=== PATIENT | female | born 1960 | race Caucasian/White ===

== ENCOUNTER → 2019-07-12 | Outpatient (CLI) | payer MEDICARE ==
[~2019-07-12] MED LIST: CIPRO500 MG PO; IBUPROFEN 800800 M1 PO; MEDROLDOSEPACK PO; NOHOMEMEDICATIONS; ROBAXIN 750 MG750 M1 PO; TRAMADOL 50 MG50 MG PO
--- NOTE | 2019-07-17 19:26 | SLEEP ---
[address] [address] SLEEP STUDY REPORT Name: AYANNALUIS Room: [facility]#: [id number] Admission: 07/12/19 Attend Phys: Michael Harvey DO Discharge: Date of : 60 Report #: [id number] THIS REPORT FOR: //name// CC: Michael Harvey This study has been reviewed in its entirety by a board certified sleep specialist DATE OF SERVICE: 07/12/2019 SLEEP STUDY ATTENDING PHYSICIAN: Dr. Michael Harvey The patient is 58 years old who weighs 300 pounds with a BMI of 56.7. The patient underwent split night study performed at [facility]. During the night study, the patient spent 481 minutes in bed and slept for 352 minutes with a sleep efficiency of 73%. Sleep latency was 43 minutes with a REM latency of 85 minutes. Overall, sleep architecture showed normal stage 1 sleep, significantly reduced stage 2 sleep, which was only 17%, total sleep time. Increased N3 sleep, which is 43% of total sleep time and increased REM sleep, which was 35% of total sleep time. During the initial diagnostic portion of the study, the patient spent 92 minutes in bed and slept for 26 minutes. During that time, the patient had no obstructive mixed or central apneas. However, there were 47 hypopneas. The patient's apnea hypopnea index was 108 per hour. REM sleep was not observed. The patient did not have supine sleep either. EKG monitoring revealed an average heart rate of 91 beats per minute. No sustained arrhythmias observed. PLMS were seen at an index of 129 per hour and 36 per hour caused EEG arousals. However, while the patient slept on CPAP, the PLM index went down to only 13 per hour with an arousal index of 3 per hour. Nocturnal oximetry study revealed an average oxygen saturation of 85% with a lowest of 79% during the diagnostic portion. 28 minutes were spent in oxygen saturation of less than 89%. The patient met the criteria for CPAP initiation. It was started at 9 cm water and titrated up to 18 cm water. Two liters of oxygen was also added due to persistent hypoxia related to hypoventilation. The patient was then switched to BiPAP at a pressure of 20/16 and finally titrated up to 21/17[place] [address] SLEEP STUDY REPORT Name: LUIS URENA Room: [facility]#: [id number] Admission: 07/12/19 Attend Phys: Michael Harvey DO Discharge: Date of : 60 Report #: [id number] pressure, the patient slept for 265 minutes including 91 minutes of REM sleep. The patient had supine sleep as well. The patient's AHI was reduced to 1.4 per hour and oxygen saturation remained above 88%. IMPRESSION: 1. Severe sleep apnea-hypopnea syndrome at an AHI of 108 per hour. 2. Nocturnal hypoxia secondary to obstructive sleep apnea and hypoventilation. 3. Severe periodic limb movements - seen initially in the diagnostic portion, but significantly improved while the patient slept on CPAP from an index of 129 per hour to 13 per hour only. This does not need to be treated unless the patient has symptoms of restless legs during the day. RECOMMENDATIONS: 1. BiPAP at a pressure of 21/17 completely eliminated the patient's sleep apnea and should be used on a nightly basis.Patient also required 2 litres oxygen bleed in with BIPAP. 2. Follow up in 4-6 weeks to assess compliance with BiPAP and to document clinical improvement. 3. Weight loss is strongly advised. 4. Avoid FASHION MODEL depressants. 5. Cautioned regarding driving or operating heavy machinery until symptoms of sleep apnea resolve with the use of BiPAP. <ELECTRONICALLY SIGNED> By: Buck Hodgson MD 07/17/19 1926 1725 1916Aacacia Hodgson MD /nt
== END ==
LOC: M.SLEEPLAB 19:44
DX: G47.33 Obstructive sleep apnea (adult) (pediatric) (principal)

== ENCOUNTER → 2019-08-21 | Outpatient (CLI) | payer MEDICARE ==
[~2019-08-21] MED LIST changes: +ACCUNEB SO1.25 MG/1 INH; +BREO ELLIPTA 11 EACH INH; +CYMBALTA30 MG PO; +LISINOPRIL20 MG PO; +NEURONTIN 400400 M1 PO; +NORCO 5-325 TA1 EAC1 PO; +NORVASC5 MG PO; +OMEPRAZOLE20 M2 PO; +TOPROL XL100 MG PO; +VISTARIL 25 MG25 M1 PO; +WELLBUTRIN XL150 MG PO; +ZANAFLEX4 MG PO; +ZOCOR20 MG PO
== END ==
LOC: M.PC 04:54
DX: M51.16 Intervertebral disc disorders with radiculopathy, lumbar region (principal); M47.26 Other spondylosis with radiculopathy, lumbar region; E66.01 Morbid (severe) obesity due to excess calories; Z68.43 Body mass index [BMI] 50.0-59.9, adult; Z79.899 Other long term (current) drug therapy

== ENCOUNTER → 2019-09-01 | Outpatient (CLI) | payer MEDICARE ==
[~2019-09-01] MED LIST changes: +ANECREAM5 GM TOP; +ERGOCALCIF50000 UNIT PO; +GNP SENNA PLUS1 EACH PO; +IPRAT-ALBUT 0.5-3 ML INH; +MELATONIN5 M1 PO; +MUCINEX600 MG PO; +NAPROXEN375 MG PO; +OXYCODONE HCL 55 MG PO; +PREDNISONE 20 M20 MG PO; +SINGULAIR 10 MG10 M1 PO
== END ==
LOC: M.RAD 08-25 16:30 → M.MRI 08-25 17:30 → M.RAD 16:11
DX: M47.26 Other spondylosis with radiculopathy, lumbar region (principal); M47.817 Spondylosis without myelopathy or radiculopathy, lumbosacral region; M51.87 Other intervertebral disc disorders, lumbosacral region; M43.17 Spondylolisthesis, lumbosacral region; Z96.642 Presence of left artificial hip joint; M25.751 Osteophyte, right hip; M48.54XA Collapsed vertebra, not elsewhere classified, thoracic region, initial encounter for fracture; M48.061 Spinal stenosis, lumbar region without neurogenic claudication; M51.34 Other intervertebral disc degeneration, thoracic region

== ENCOUNTER 2019-09-11 10:43 | Inpatient (IN) | payer MEDICARE ==
[~2019-09-11] VITALS: Ht 157.5 cm; Wt 151.0 kg
[~2019-09-11 10:43] MED LIST changes: -ANECREAM5 GM TOP; -ERGOCALCIF50000 UNIT PO; -GNP SENNA PLUS1 EACH PO; -IPRAT-ALBUT 0.5-3 ML INH; -MELATONIN5 M1 PO; -MUCINEX600 MG PO; -NAPROXEN375 MG PO; -OXYCODONE HCL 55 MG PO; -PREDNISONE 20 M20 MG PO; -SINGULAIR 10 MG10 M1 PO
[2019-09-11 10:55] VITALS: BP 133/81
[2019-09-11 11:28] LABS: HEMATOCRIT 38.4 % (37.0-47.0); MCH 25.9 pg (26.0-34.0); MCHC 31.2 g/dL (28.0-37.0); MCV 83.1 fL (80.0-100.0); MPV 8.5 fl. (7.2-11.1); NUCLEATED RBCS 0 /100WBC; PLATELET COUNT* 248 thou/uL (150-400); RBC 4.62 mil/uL (4.20-5.00); RDW-CV 18.1 % (10.5-14.5); WBC 11.4 thou/uL (4.0-11.0)
[2019-09-11 11:37] LABS: APTT 27.8 Seconds (25.0-31.3); CALCIUM 9.1 mg/dL (8.5-10.1); CREATININE 1.7 mg/dL (0.6-1.3); POTASSIUM 4.5 mmol/L (3.5-5.1); PROTIME 10.3 Seconds (9.20-11.50)
[2019-09-11 11:47] LABS: ALBUMIN 3.1 g/dL (3.4-5.0); MAGNESIUM 1.8 mg/dL (1.8-2.4); TOTAL BILIRUBIN 0.3 mg/dL (<0.1-1.0); TOTAL PROTEIN 7.2 g/dL (6.4-8.2)
--- NOTE | 2019-09-11 12:03 | NUR ---
DR. HORNE IN ROOM WITH PATIENT.
[2019-09-11 12:08] LABS: ABSOLUTE LYMPHOCYTES 0.9 thou/uL (0.8-5.3); ABSOLUTE MONOCYTES 0.6 thou/uL (0.0-1.2); ABSOLUTE NEUTROPHILS 9.9 thou/uL (1.6-8.1); ANISOCYTOSIS 1+; PLATELET ESTIMATE ADEQUATE; POIKILOCYTOSIS 1+; POLYCHROMASIA 1+
[2019-09-11 13:30] VITALS: BP 104/56
--- NOTE | 2019-09-11 15:53 | NUR ---
PATIENT PRESENTED TO ROOM 226 FROM ER PER CART WITH A HX OF RESPIRATORY FAILURE. PATIENT IS ALERT AND ORIENTED X 4. SHE C/O SEVERE CHRONIC BACK PAIN. IV ANTIBIOTIC COMPLETED FROM ER. PATIENT PLACED ON TELE MONITOR. ORIENTED TO ROOM. PATIENT INSTRUCTED ON FALL PRECAUTIONS. BOX LUNCH PROVIDED. RESPIRATORY IN TO GIVE TREATMENT. O2 INCREASED TO 3 LITERS NC. PATIENT MEDICATED FOR C/O PAIN. PATIENT IS IN BED AT THIS TIME CALL LIGHT IS IN REACH.
--- NOTE | 2019-09-11 16:58 | EKG ---
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: : 1960 Requested By: Rene Riggs Order Number: [id number] MD: Seth Jones Measurements Intervals [place] Rate: 91 P: 65 ND: 154 QRS: -27 QRSD: 101 T: 45 QT: 379 QTc: 467 Interpretive Statements Pacemaker spikes or artifacts Sinus rhythm Borderline left axis deviation Low voltage, precordial leads Abnormal R-wave progression, late transition Borderline T abnormalities, anterior leads Artifact in lead(s) II,aVR,aVL,aVF No previous ECG available for comparison Electronically Signed On 09-11-2019 16:58:30 CDT by Seth Jones [email or web address] <ELECTRONICALLY SIGNED> By: Seth Jones MD, FACC 09/11/19 1658 1130 1130 Seth Jones MD, FACC /EPI
[2019-09-11 20:00] VITALS: BP 131/82
[2019-09-12 00:48] VITALS: BP 117/81
[2019-09-12 04:17] VITALS: BP 127/85
--- NOTE | 2019-09-12 04:47 | NUR ---
ASSUMED PT CARE AT APPROX 1930. PT IS AWAKE AND ORIENTED X4. RN ADVICE IN PLACE TRACING SR/ST. PT REMAINED SHORT OF AIR WITH ACTIVITY. spO2 NOTED AT 87-89% ON 4L, EXPIRATORY WHEEZES NOTED, PT INSTRUCTED TO DEEP BREATHE, INCREASED O2 SUPPORT TO 5L, RT CALLED FOR A PRN BREATHING TX. spO2 IS 92% ON 5L. PT ALSO C/O CHRONIC BACK PAIN PARTIALLY RELIEVED BY PAIN MEDS PER JAN. HEATING PAD PROVIDED. PT CLOSELY MONITORED.
[2019-09-12 07:00] VITALS: BP 116/63
--- NOTE | 2019-09-12 11:07 | NUR ---
INITAL ASSESSMENT COMPLETED CHARTED. VSS. PT REMAIN ON 4-5 LPM O2 WITH SATS AT 90%. TRACING SR/ST ON MONITOR. PT C/O CHRONIC BACK PAIN. PT DENIES ANY FURTHER NEEDS AT THIS TIME. HOURLY ROUNDING IN PLACE FOR PT SAFETY. CLWR
[2019-09-12 12:27] VITALS: BP 95/55
--- NOTE | 2019-09-12 13:41 | NUR ---
MET WITH PT TO DISCUSS HOME SITUATION/DC PLANNING. PT LIVES ALONE, HAS DTR THAT LIVES CLOSEBY. PT IS INDEPENDENT AND ACTIVE. USES NEBULIZER. PT HAS HAD HH IN PAST BUT NOT BEEN TO REHAB. PT DOESN'T HAVE A DPOA, INFO AND FORM GIVEN. PT DID NOT IDENTIFY ANY DC NEEDS AT THIS TIME, WILL FOLLOW
[2019-09-12 20:15] VITALS: BP 133/100
[2019-09-13 04:50] LABS: CALCIUM 9.3 mg/dL (8.5-10.1); CREATININE 1.9 mg/dL (0.6-1.3); MAGNESIUM 2.4 mg/dL (1.8-2.4)
[2019-09-13 04:57] LABS: HEMATOCRIT 40.1 % (37.0-47.0); HEMOGLOBIN 11.9 gm/dL (12.0-15.0); MCH 25.5 pg (26.0-34.0); MCHC 29.7 g/dL (28.0-37.0); MPV 8.9 fl. (7.2-11.1); RBC 4.66 mil/uL (4.20-5.00); RDW-CV 18.9 % (10.5-14.5)
--- NOTE | 2019-09-13 07:22 | NUR ---
PT ON 5L O2 BY LA. SAT 90-92%. MEDS GIVEN ORDERED. CHRONIC BACK PAIN MANAGED BY [employer]. HOURLY ROUNDING COMPLETED. WILL CONTINUE TO MONITOR.
[2019-09-13 08:00] VITALS: BP 121/73
[2019-09-13 15:44] VITALS: BP 95/60
[2019-09-13 16:36] VITALS: BP 121/72
[2019-09-13 18:19] LABS: PO2 69.5 mmHg (75.0-100.0)
[2019-09-13 18:22] LABS: PCO2 70.2 mmHg (35.0-45.0); pH 7.205 (7.340-7.450)
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
--- NOTE | 2019-09-13 18:42 | NUR ---
DR MORLEY NOTIFIED OF [facility] RESULTS FROM ABG. ORDERS GIVEN FOR BIPAP, SOLUMEDROL AND TRANSFER TO ICU.
[2019-09-13 20:54] VITALS: BP 124/66
[2019-09-13 22:00] VITALS: BP 121/68
[2019-09-13 23:00] VITALS: BP 127/77
[2019-09-14] VITALS (14 sets, daily range): BP systolic 106–148; BP diastolic 58–86
[2019-09-14 04:03] LABS: HEMATOCRIT 36.3 % (37.0-47.0); HEMOGLOBIN 10.8 gm/dL (12.0-15.0); MCH 25.5 pg (26.0-34.0); MCHC 29.8 g/dL (28.0-37.0); MCV 85.5 fL (80.0-100.0); MPV 8.6 fl. (7.2-11.1); RBC 4.24 mil/uL (4.20-5.00); RDW-CV 18.8 % (10.5-14.5); WBC 14.5 thou/uL (4.0-11.0)
[2019-09-14 04:37] LABS: CREATININE 2.2 mg/dL (0.6-1.3); MAGNESIUM 2.6 mg/dL (1.8-2.4); POTASSIUM 5.7 mmol/L (3.5-5.1)
[2019-09-14 05:34] LABS: BE -0.8 mmol/L (-2 to +3)
[2019-09-14 05:37] LABS: PCO2 70.1 mmHg (35.0-45.0); PO2 58.4 mmHg (75.0-100.0); pH 7.222 (7.340-7.450)
--- NOTE | 2019-09-14 06:39 | NUR ---
VITALS STABLE, AFEBRILE. POST ABG BIPAP SETTINGS ADJUSTEMENT THIS AM. COMPALINS OF BACK PAIN. NO BM, INCONTINENT TO URINE. RIGHT ANKLE SLIGHTLY MORE SWOLLEN FROM BEGINNING OF SHIFT, PT DOES NOT COMPLAIN OF PAIN THERE. OTHERWISE UNEVENFRUL NIGHT. CALL LIGHT WITHIN REACH.
[2019-09-14 07:50] LABS: BE 2.8 mmol/L (-2 to +3); PO2 93.5 mmHg (75.0-100.0)
[2019-09-14 07:53] LABS: PCO2 72.8 mmHg (35.0-45.0); pH 7.257 (7.340-7.450)
--- NOTE | 2019-09-14 14:46 | NUR ---
MET WITH PT REGARDING HOME TRILOGY; OFFERED CHOICE & SHARED LIST OF AGENCIES. [facility] SELECTED TO SEND REFERRAL. OUTREACH INITIATED AND DOCUMENTS REQUIRED FOR PRIOR AUTHORIZATION FAXED.
[2019-09-14 15:53] LABS: BE 4.6 mmol/L (-2 to +3); PO2 79.5 mmHg (75.0-100.0); pH 7.323 (7.340-7.450)
[2019-09-14 15:56] LABS: PCO2 63.4 mmHg (35.0-45.0)
--- NOTE | 2019-09-14 17:00 | 2DMMODE ---
[place] [address] 2 D/M-MODE ECHOCARDIOGRAM Name: AYANNALUIS A Room: [address] IN [facility]#: [id number] Admission: 09/11/19 Attend Phys: Sachin Bermeo, Discharge: Date of : 60 Date of Service: 09/14/19 1659 Report #: [id number] THIS REPORT FOR: //name// APPROVED REPORT Study performed: 09/14/2019 15:08:52 EXAM: Comprehensive 2D, Doppler, and color-flow Echocardiogram Patient Location: In-Patient Room #: [facility] Status: routine BSA: 2.35 HR: 89 bpm BP: 148/86 mmHg Rhythm: NSR Other Information Study Quality: Technically Difficult Technically limited study due to body habitus, poor endocardial definition. Indications Dyspnea Volumes Left Atrial Volume (Systole) LA ESV Index: 34.20 mL/m2 Aortic Valve AoV Peak Willian.: 1.51 m/s AO Peak Gr.: 9.11 mmHg LVOT Max P.17 mmHg AO Mean Gr.: 5.28 mmHg LVOT Mean P.11 mmHg LVOT Max V: 1.24 m/s AO V2 VTI: 27.30 cm LVOT Mean V: 0.81 m/s LVOT V1 VTI: 24.34 cm Mitral Valve E/A Ratio: 1.03 MV Decel. Time: 200.26 ms MV E Max Willian.: 0.76 m/s MV PHT: 58.08 ms MVA (PHT): 3.79 cm2 TDI E/Lateral E': 6.91 E/Medial E': 7.60 [place] [address] 2 D/M-MODE ECHOCARDIOGRAM Name: LUIS URENA Room: [address] IN [facility]#: [id number] Admission: 09/11/19 Attend Phys: Sachin Bermeo, Discharge: Date of : 60 Date of Service: 09/14/19 1659 Report #: [id number] Medial E' Willian.: 0.10 m/s Lateral E' Willian.: 0.11 m/s Left Ventricle The left ventricle is normal size. No obvious segmental wall motion abnormality. Left ventricular systolic function is grossly normal. LVEF is 65-70%. Transmitral Doppler flow pattern suggests impaired LV relaxation. Right Ventricle The right ventricle is grossly normal in size. The right ventricular systolic function is grossly normal. Atria Left atrium is mildly dilated. The right atrium size is normal. Aortic Valve The aortic valve is not well-visualized. No obvious aortic insufficiency. There is no aortic valvular stenosis. Mitral Valve The mitral valve is not well-visualized. Trace mitral regurgitation. No evidence of mitral valve stenosis. Tricuspid Valve The tricuspid valve is not well-visualized. Unable to assess PA pressure. Trace tricuspid regurgitation. Pulmonic Valve The pulmonic valve is not visualized. There is no pulmonic valvular regurgitation. Great Vessels The aortic root is grossly normal in size. IVC is normal in size and collapses >50% with inspiration. Pericardium There is no pericardial effusion. <Conclusion> The left ventricle is normal size. Left ventricular systolic function is grossly normal. LVEF is 65-70%. Transmitral Doppler flow pattern [place] [address] 2 D/M-MODE ECHOCARDIOGRAM Name: LUIS URENA Room: [address] IN [facility]#: [id number] Admission: 09/11/19 Attend Phys: Sachin Bermeo, Discharge: Date of : 60 Date of Service: 09/14/191658 Report #: [id number] No obvious segmental wall motion abnormality. Left atrium is mildly dilated. <ELECTRONICALLY SIGNED> By: Dilan Crespo MD, [facility] 09/14/191658 58 58 Dilan Crespo MD, FACC /INF
--- NOTE | 2019-09-14 18:12 | NUR ---
THIS SKULL GRINDER ASSUMED CARE OF PT AFTER RECEIVING SHIFT REPORT AT 0700. PT ADVANCED TOWARD GOALS TODAY BY MAINTAINING MORE STABLE O2 SAT WITH LOWER BIPAP SETTING ABG ARE PROGRESSING SINCE ON BIPAP. PT HAD X-RAY TO CONFIRM FX RIGHT ANKLE DO TO FALL ORTHO CONSULT TODAY WRAPPED AND IMMOBILIZED POSSIBLE SURGERY NEEDED AFTER PT IS HEMODYNAMICALLY STABLE. DAUGHTER JANET CALLED TO SEE HOW PT WAS DOING. PT IS CURRNENTLY SLEEPING IN BED
[2019-09-15] VITALS (15 sets, daily range): BP systolic 120–153; BP diastolic 66–91
[2019-09-15 03:10] LABS: HEMATOCRIT 35.1 % (37.0-47.0); MCH 25.9 pg (26.0-34.0); MCHC 31.3 g/dL (28.0-37.0); MPV 8.8 fl. (7.2-11.1); RBC 4.22 mil/uL (4.20-5.00); RDW-CV 18.4 % (10.5-14.5); WBC 10.8 thou/uL (4.0-11.0)
[2019-09-15 03:29] LABS: CALCIUM 8.7 mg/dL (8.5-10.1); CREATININE 1.9 mg/dL (0.6-1.3); MAGNESIUM 2.5 mg/dL (1.8-2.4); POTASSIUM 4.8 mmol/L (3.5-5.1)
--- NOTE | 2019-09-15 03:37 | NUR ---
RECEIVED REPORT AND ASSUMED CARE AT 2355. PT RESTING IN BED. VSS. ICU MONITORING IN PLACE.
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
[2019-09-15 08:58] LABS: BE 6.4 mmol/L (-2 to +3); pH 7.355 (7.340-7.450)
[2019-09-15 09:00] LABS: PCO2 61.7 mmHg (35.0-45.0)
--- NOTE | 2019-09-15 12:24 | NUR ---
MET WITH PATIENT IN ROOM; ADVISED TRILOGY WAITING FOR DR ORDERS; DISCUSSED DC TO SNF WHEN READY & CHOICE OFFERED. PT REQUESTS SNF IN [place] FIRST CHOICE AND TO LOOK AT THE [facility] 2ND CHOICE. PT REQUESTS I CONTACT HER TWO DAUGHTERS AND UPDATE ON DC PLAN. CALL TO JANET, WITH VOICE MAIL ANSWER; CALL TO [facility], AND ADVISED OF TRILOGY THROUGH [facility] AND PLAN FOR SNF. ALL QUESTIONS ANSWERED.
--- NOTE | 2019-09-15 13:08 | NUR ---
Per patient request, call to [facility]. Spoke with admissions; Referral paperwork faxed. They state plan to have female bed open early to mid of next week. [facility] [address] [place], [place]. fax: [phone] phone: [phone]
--- NOTE | 2019-09-15 13:14 | NUR ---
Nutrition: Pt assessed for high BMI. Admitted with COPD exac. Wt up some from admit - 315 to 324#. Some edema in ankles. Regular diet. BUN 54, cr 1.9, alb 3.1, BG 131. Unsure of po intake today. Pt was sound asleep at time of visit. Mild risk. Will follow labs, wt, po intake per protocol, 09/20/19.
--- NOTE | 2019-09-15 18:21 | NUR ---
PT ASSUMED CARE OF PT AFTER RECEIVING SHIFT REPORT AT 0700. PT PROGRESSED TOWARD GOALS TODAY HAS TRANSFER ORDER TO DOWNGRADE WAITING ON AN OPEN ROOM. PT NO LONGER IS USIN BIPAP BUT HIGHFLOW NC ON 6L ABG RESULTS HAVE IMPROVED SINCE YESTERDAY. ORTHO SURGERY TALKED WITH PT ABOUT POTENTIAL SURGERY ON RIGHT ANKLE NEXT WEEK. PT ALSO SPOKE WITH CASE MG[facility] ABOUT PLACEMENT WITH [facility] AND REHAB AFTER DISCHARGE MOM AND SISTER IN ROOM MOST OF SHIFT
--- NOTE | 2019-09-16 00:34 | NUR ---
VSS. O2 SAT REMAINS >92% ON 6L O2 PER HFNC, BIPAP AT HS. NORCO GIVEN X1 FOR C/O BACK AND RLE PAIN WITH RELIEF OF SYMPTOMS. PT TO TRANSFER TO [facility], REPORT GIVEN TO HEBER Huitron RN.
[2019-09-16 03:49] VITALS: BP 126/90
--- NOTE | 2019-09-16 07:04 | NUR ---
ASSESSMENTS CHARTED. PATIENT UP FROM ICU TO UNIT. REMAINS ON HFNC AT 7 L. PATIENT SLEPT FOR MAJORITY OF SHIFT, AWOKE AT 0600. PATIENT IN PAIN REQUESTING MEDICATION.
[2019-09-16 08:00] VITALS: BP 149/89
[2019-09-16 09:18] LABS: BE 4.1 mmol/L (-2 to +3); PO2 73.7 mmHg (75.0-100.0); pH 7.345 (7.340-7.450)
[2019-09-16 09:20] LABS: PCO2 58.6 mmHg (35.0-45.0)
[2019-09-16 11:05] VITALS: BP 145/83
[2019-09-16 15:31] VITALS: BP 138/77
[2019-09-16 20:00] VITALS: BP 127/77
--- NOTE | 2019-09-16 20:21 | NUR ---
ASSUMED PT CARE AROUND 0700, PT NOTED TO BE RESTING IN BED A/OX4. PT HAD C/O PAIN. PAIN MED GIVEN. PT ON 5L 02 BREATHING COMFORTABLE. PT COMPLIANT WITH ALL NURSING CARE THIS SHIFT. PT WAS ABLE TO SIT IN RECLINER FOR A FEW HOURS WITH ASSISTANCE, MAINTAINED SR ON THE MONITOR. VSS, FALL PRECAUTIONS IN PLACE, CALL LIGHT AND PERSONAL BELONNGINGS IN REACH. BED AT LOWEST POSITION. .
--- NOTE | 2019-09-16 20:30 | NUR ---
THIS RN HAS REVIEWED THE CHARTING AND ASSESSMENT OF EDY AU.
[2019-09-17 00:49] VITALS: BP 118/68
[2019-09-17 04:00] VITALS: BP 132/78
--- NOTE | 2019-09-17 05:46 | NUR ---
ASSUMED PATIENT CARE AT 1900. ASSESSMENT COMPLETED CHARTED. VSS. SR ON MONITOR. PATIENT GOAL MET. HOURLY ROUNDING IN PLACE FOR PATIENT SAFETY. CLWR.
--- NOTE | 2019-09-17 07:27 | NUR ---
I HAVE REVIEWED AND AGREE WITH VALERIANO STEWART RN NURSING ASSESSMENT.
[2019-09-17 08:00] VITALS: BP 126/73
[2019-09-17 12:00] VITALS: BP 132/75
[2019-09-17 16:00] VITALS: BP 139/75
--- NOTE | 2019-09-17 16:31 | NUR ---
assumed pt care report received from nurse. pt is aox4. sinus rythm on monitor car operator. on 4 l nc. o2 saturation is 93%. pt states she wore bipap last night for 4 hours. pt out of bed to chair with assistance and walker use. non weight bearing on right lower extremity. traore patent. pt complains of lower back pain. tylenol and hydrocodone given. see emar. traore was removed at [address] order. will monitor output. call light at reach. will continue to monitor pt
[2019-09-17 22:07] LABS: PROLACTIN 16.1 ng/mL (4.8-23.3)
[2019-09-18] VITALS: BP 131/87; BP 132/83
[2019-09-18 04:00] VITALS: BP 135/87; BP 148/89
--- NOTE | 2019-09-18 05:13 | NUR ---
ASSUMED PATIENT CARE AT 1900. ASSESSMENT COMPLETED CHARTED. VSS. SR ON MONITOR. HOURLY ROUNDING IN PLACE FOR PATIENT SAFETY. CLWR.
--- NOTE | 2019-09-18 07:37 | NUR ---
I HAVE REVIEWED AND AGREE WITH PATSY STEWART RN, NURSING ASSESSMENT.
[2019-09-18 08:00] VITALS: BP 146/93
--- NOTE | 2019-09-18 09:19 | NUR ---
CM spoke with Pt regarding disposition, per previous CM note, plan for skilled v rehab at [place], PT in room to work with Pt, Cm to f/u post therapy session to determine what LOC Pt will need at [place]. CM faxed facesheet to [facility], for HH needs post dc. Pt states that she will likely need a walker for home and oxygen, trilogy order pending, per [place] at [facility], awaiting a signed order and updated note, CM to f/u to determine where we are with getting this information to [facility]. Following.
[2019-09-18 11:40] VITALS: BP 124/73
--- NOTE | 2019-09-18 15:03 | NUR ---
ASSUMED PT CARE REPORT RECEIVED FROM NURSE. PT IS AOX4. 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 ON 4 L NC. O2 SAT 93%. PT UP TO CHAIR WITH ASSIST X1 AND WALKER. PT COMPLAINS OF HEADACHE EARLY IN THE AM. TYLENOL GIVEN. PT ALSO COMPLAINS OF PAIN IN HER LEGS LATER THIS SHIFT. HYDROCODONE GIVEN PT WORKED WITH PHYSICAL THERAPIST AND OCCUPATIONAL THERAPIST. PT HAS A MODERATE AMOUNT OF FORMED BROWN COLORED STOOL. CALL LIGHT AT REACH. WILL CONTINUE TO MONITOR
[2019-09-18 16:00] VITALS: BP 134/71
[2019-09-18 20:00] VITALS: BP 116/66
[2019-09-19] VITALS (7 sets, daily range): BP systolic 113–146; BP diastolic 73–91
[2019-09-19 05:58] LABS: ALBUMIN 3.1 g/dL (3.4-5.0); CALCIUM 8.9 mg/dL (8.5-10.1); CREATININE 1.7 mg/dL (0.6-1.3); POTASSIUM 5.5 mmol/L (3.5-5.1); TOTAL BILIRUBIN 0.4 mg/dL (<0.1-1.0); TOTAL PROTEIN 6.6 g/dL (6.4-8.2)
--- NOTE | 2019-09-19 10:39 | NUR ---
CM spoke with Lisa from [facility], they can accept Pt, but need to get bariatric today, plan dc to skilled tomorrow. Trilogy to be delivered to the hospital today between 3-5pm. Updated Dr and Pt.
[2019-09-19 19:56] LABS: HEMOGLOBIN 12.1 gm/dL (12.0-15.0); MCHC 30.9 g/dL (28.0-37.0); MPV 8.5 fl. (7.2-11.1); NUCLEATED RBCS 0 /100WBC; PLATELET COUNT* 228 thou/uL (150-400); RBC 4.64 mil/uL (4.20-5.00); RDW-CV 18.8 % (10.5-14.5); WBC 14.4 thou/uL (4.0-11.0)
[2019-09-19 20:24] LABS: ABSOLUTE LYMPHOCYTES 0.7 thou/uL (0.8-5.3); ABSOLUTE NEUTROPHILS 13.7 thou/uL (1.6-8.1)
[2019-09-19 20:28] LABS: ANISOCYTOSIS 1+; PLATELET ESTIMATE ADEQUATE
--- NOTE | 2019-09-20 04:41 | NUR ---
PT A&O X4, VSS, MAINTAINING O2 SATS ON 2.5L VIA NC ABD TRIOLOGY @ . PT IS CONCERNED WITH SURGERY THIS AM AND HAVING SOME ANXIETY. TREATED WITH PRN MEDS ALONG WITH C/O PAIN THAT WAS ALSO TREATED WITH PRN MEDS. PT ABLE TO SLEEP OFF AND ON D/T FREQUENT URINATION. CURRENTLY RESTING IN BED WITH CALL LIGHT WITHIN REACH.
[2019-09-20 05:19] LABS: HEMATOCRIT 40.4 % (37.0-47.0); HEMOGLOBIN 12.4 gm/dL (12.0-15.0); MCH 25.8 pg (26.0-34.0); MCHC 30.7 g/dL (28.0-37.0); MPV 8.7 fl. (7.2-11.1); RBC 4.8 mil/uL (4.20-5.00); RDW-CV 18.4 % (10.5-14.5); WBC 15.8 thou/uL (4.0-11.0)
[2019-09-20 05:26] VITALS: BP 134/91
[2019-09-20 05:41] LABS: ALBUMIN 3.2 g/dL (3.4-5.0); ALKALINE PHOSPHATASE 64 U/L (46-116); ANION GAP 3 mmol/L (7-16); BUN 36 mg/dL (7-18); CALCIUM 8.6 mg/dL (8.5-10.1); CHLORIDE 101 mmol/L (98-107); CHOLESTEROL 132 mg/dL (<200); CO2 37 mmol/L (21-32); CREATININE 1.6 mg/dL (0.6-1.3); GLUCOSE 91 mg/dL (70-99); SGOT 22 U/L (15-37); SGPT 22 U/L (30-65); SODIUM 141 mmol/L (136-145); TOTAL BILIRUBIN 0.4 mg/dL (<0.1-1.0); TOTAL PROTEIN 6.6 g/dL (6.4-8.2); TRIGLYCERIDE 138 mg/dL (<150); VLDL 28 mg/dL (<40)
[2019-09-20 05:44] LABS: SERUM ASSESSMENT Clear
[2019-09-20 07:13] LABS: HDL CHOLESTEROL 51 mg/dL (>40); LDL CHOLESTEROL 54 mg/dL (<100); TC:HDL 2.6 Ratio (Not establshd)
--- NOTE | 2019-09-20 07:20 | NUR ---
PATIENT OFF FLOOR IN SURGERY REPORT GIVEN
--- NOTE | 2019-09-20 10:36 | NUR ---
Nutrition: follow up note. Pt eating regular diet. Alb 3.2, BG 91. Wt 333#. Possible disch to SNF tomorrow. No other nutrition interventions at this time. Low risk.
--- NOTE | 2019-09-20 11:20 | NUR ---
Surgery today, anticipate dc tomorrow.
[2019-09-20 11:30] VITALS: BP 146/86
--- NOTE | 2019-09-20 11:30 | NUR ---
PATIENT BACK FROM PACU SURGERY ORIF OF R ANKLE TO VIA BED RLE ACEWRAP C/D/I ELEVATED ON PILLOWS PATIENT STATES SOME PAIN 02/05 WILL CONTINUE TO MONITOR
--- NOTE | 2019-09-20 15:09 | EKG ---
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[facility] 1960 Requested By: Lilly James Order Number: [id number] John MD: Shawn Donsi Measurements Intervals [place] Rate: 87 P: LA: QRS: -25 QRSD: 105 T: 49 QT: 383 QTc: 461 Interpretive Statements Sinus rhythm Borderline left axis deviation Abnormal R-wave progression, late transition Artifact in lead(s) I,II,III,aVR,aVL,aVF Compared to ECG 09/11/2019 11:30:10 T-wave abnormality no longer present Electronically Signed On 09-20-2019 15:08:47 CDT by Shawn Donis [email or web address] <ELECTRONICALLY SIGNED> By: Shawn Donis MD, FACC 09/20/19 1508 0506 0506 Shawn Donis MD, FACC /EPI
[2019-09-20 16:00] VITALS: BP 112/55
[2019-09-20 20:00] VITALS: BP 142/82
[2019-09-21] VITALS: BP 145/80
--- NOTE | 2019-09-21 05:35 | NUR ---
PT A&O X4, VSS, MAINTAINING SATS ON 2L NC AND TRIOLOGY AT HS. PT RECOVERING FROM SURGERY, C/O PAIN BEING TREATED WITH PRN MEDICATION WITH RELIEF NOTED. PT STATING SHE WAS FINALLY ABLE TO SLEEP. PT CURRENTLY ASLEEP IN BED WITH CALL LIGHT WITHIN REACH.
[2019-09-21 07:16] VITALS: BP 140/80
[2019-09-21] MEDS ORDERED: PREDNISONE 20 M20 MG PO (09:16)
[2019-09-21] MEDS ORDERED: SINGULAIR 10 MG10 M1 PO (09:16)
[2019-09-21] MEDS ORDERED: IPRAT-ALBUT 0.5-3 ML INH (09:16)
[2019-09-21] MEDS ORDERED: NAPROXEN375 MG PO (09:16)
[2019-09-21] MEDS ORDERED: MUCINEX600 MG PO (09:16)
[2019-09-21] MEDS ORDERED: ANECREAM5 GM TOP (09:16)
[2019-09-21] MEDS ORDERED: ERGOCALCIF50000 UNIT PO (09:16)
[2019-09-21] MEDS ORDERED: OXYCODONE HCL 55 MG PO (09:16)
[2019-09-21] MEDS ORDERED: GNP SENNA PLUS1 EACH PO (09:16)
[2019-09-21] MEDS ORDERED: MELATONIN5 M1 PO (09:16)
--- NOTE | 2019-09-21 09:39 | NUR ---
Pt discharging to [facility] today, ambulance to grain picker at 2pm. Faxed dc orders and bipap settings, reminded Pt that she will not be able to use her trilogy while being skilled. Pt to updated family on POC. Chart copied. Nurse report number is [id number].
[2019-09-21 09:50] VITALS: BP 140/80
--- NOTE | 2019-09-21 14:41 | NUR ---
ASSUMED PT CARE AT 0730. ASSESSMENT COMPLETED CHARTED. ABLE TO MAKE NEEDS KNOWN. UP WITH 1 ASSIST, STAND AND PIVOT. C/O PAIN IN BACK AND RIGHT FOOT. RESTING IN RECLINER SOME OF THE DAY. DISCHARGE APPROVED, DISCHARGE PAPERWORK IN PACKET, IV TAKEN OUT AND HEART MONITOR REMOVED. CALLING REPORT TO OGNR SAILAJA, NO COMMENTS, QUESTIONS, OR CONCERNS NOTED. LEFT FACILITY AT 1440 WITH AMBULANCE ON A BED, WITH 2 AMBULANCE HELPERS, ALL STUFF TAKEN WITH HER.
--- NOTE | 2019-09-29 13:33 | OP ---
[address] [address] OPERATIVE REPORT Name: LUIS URENA Room: [address]#: [id number] Admission: 09/11/19 Attend Phys: Sachin Bermeo MD Discharge: 09/21/19 Date of : 60 Report #: [id number] THIS REPORT FOR: //name// CC: Michael Bermeo DATE OF SERVICE: 09/20/2019 PREOPERATIVE DIAGNOSIS: Right bimalleolar ankle fracture with syndesmosis injury. POSTOPERATIVE DIAGNOSIS: Right bimalleolar ankle fracture with syndesmosis injury. PROCEDURES: 1. ORIF right distal fibula. 2. ORIF right ankle syndesmosis. 3. Intraoperative physician-guided fluoro, less than 1 hour. SURGEON: Lynne Abraham DO REAL ESTATE SALES AGENT: Nathaniel Teixeira DO ANESTHESIA: Spinal. ESTIMATED BLOOD LOSS: 10 mL. SPECIMENS: None. DRAINS: None. COMPLICATIONS: None. CONDITION: Stable. DISPOSITION: PACU to med-surg. ANTIBIOTICS: 3 g Ancef IV preoperatively. TOURNIQUET: Approximately 70 minutes at 300 mmHg. IMPLANTS: Arthrex distal fibular locking plate and syndesmosis TightRope x 2. INDICATION FOR PROCEDURE: The patient is a very pleasant 58-year-old female who approximately 1 week ago stood up while in her hospital room, went to get something, she subsequently twisted her ankle and fell. X-rays were taken, [facility] [address] [place] [address] OPERATIVE REPORT Name: LUIS URENA Nahomi Room: [address] IN [facility]#: [id number] Admission: 09/11/19 Attend Phys: Sachin Bermeo MD Discharge: 09/21/19 Date of : 60 Report #: [id number] which confirmed right bimalleolar ankle fracture with likely syndesmosis injury. Therefore, I did recommend ORIF of the right ankle. The benefits, risks, complications, and alternatives of this procedure were discussed with the patient in detail. These include but are not limited to bleeding, surgical site infection, neurovascular compromise, hardware failure, malunion, nonunion, continued pain, posttraumatic arthritis, need for further surgery, DVT, PE as well as inherent risks of anesthesia. The patient understands these risks and is agreeable to proceed. Consent was signed in preoperative holding area and on the chart at the time of surgery. Operative site was marked. The patient had been followed throughout her hospital stay and the skin was noted to be amenable to surgical fixation and her medical respiratory issues had vastly improved. Therefore, she was cleared for surgical intervention. DESCRIPTION OF PROCEDURE: She was brought to the operating room. She was given the benefit of a spinal anesthetic. She was then placed supine on the operating room table. A well-padded tourniquet was placed in the proximal portion of the right thigh. The right lower extremity was then sterilely prepped with chlorhexidine scrub and ChloraPrep. She was then draped freely in the usual fashion. A timeout was performed confirming correct patient, site, procedure. Surgical site markings were identified and all in the room agreed and procedure began with exsanguination of right lower extremity with an Esmarch and inflation of tourniquet to 300 mmHg. Next, a standard lateral incision was made directly overlying the distal fibula. This was carried through skin and subcutaneous tissues. Care was taken to protect the superficial peroneal nerve throughout the entirety of the case. Dissection was carried down to the level of the periosteum. Sharp dissection was carried out at the fibular periosteum. We identified the fracture site. Fracture hematoma was cleared. We then performed open reduction and held the reduction with 2 [id number] clamps. X-rays confirmed appropriate fracture reduction with caodaism of fibular length, alignment, and rotation. We then chose an appropriate-size plate and held this into place on the bone in the appropriate position with 2 BB-Taks. We did confirm plate positioning with fluoroscopy as well. We then drilled, measured, and filled the distal holes in the plate with appropriate-length 2.7 mm locking screws and then proximal to the fracture site, 3 of the proximal holes were drilled, measured, and filled with appropriate-length 3.5 mm cortical nonlocking screws giving 6 cortices of fixation proximal to the fracture site. We then performed an intraoperative stress view. There was noted to be widening at the syndesmosis and a congruent ankle mortise with external rotation stress view. Therefore, decision was made to place 2 TightRopes across the syndesmosis. These were drilled with the appropriate drill bit and 2 TightRopes were placed across the syndesmosis, one approximately 1 cm from the joint line and one approximately 3 cm from the joint line. These were tightened down appropriately and noted to restore congruency to the ankle mortise. All excess sutures were removed. We then took final x-rays, which confirmed appropriate fracture reduction, hardware placement, and a congruent ankle mortise. Now, we irrigated the wound with saline. Deep tissues were closed with 0 Vicryl suture, [place] [address] OPERATIVE REPORT Name: LUIS URENA Room: [address]#: [id number] Admission: 09/11/19 Attend Phys: Sachin Bermeo MD Discharge: 09/21/19 Date of : 60 Report #: [id number] subcutaneous tissue was closed with 2-0 Vicryl suture, and skin reapproximated with 3-0 nylon. Wounds were then dressed with Xeroform, 4 x 4s, ABD, soft roll, and a well-padded posterior new plaster splint was applied. Tourniquet was let down at approximately 70 minutes. The patient tolerated the procedure well without complications and transferred to PACU in stable condition. All needle and sponge counts were correct x 2 and I was present throughout all pertinent portions of the procedure. <ELECTRONICALLY SIGNED> By: Lynne Abraham DO 09/29/19 1333 0945 [id number] Abraham DO /nt
== END 2019-09-21 14:35 | DRG 853 ==
LOC: M.ERS 10:43 → M.2W 11:31 → M.TBA-ER 11:31 → M.2W 13:52 → M.ORTHSURG 09-12 20:50 → M.ICU 09-13 19:10 → M.2W 09-16 00:19
PROVIDERS: Family Medicine; Internal Medicine; Internal Medicine Pulmonary Disease; ADMIT Internal Medicine
PROC: 0QSJXZZ Reposition Right Fibula, External Approach (ICD-10-PCS; principal; 2019-09-14)
PROC: 5A09357 Assistance with Respiratory Ventilation, Less than 24 Consecutive Hours, Continuous Positive Airway Pressure (ICD-10-PCS; 2019-09-15)
PROC: 5A09357 Assistance with Respiratory Ventilation, Less than 24 Consecutive Hours, Continuous Positive Airway Pressure (ICD-10-PCS; 2019-09-16)
PROC: 5A09357 Assistance with Respiratory Ventilation, Less than 24 Consecutive Hours, Continuous Positive Airway Pressure (ICD-10-PCS; 2019-09-17)
PROC: 5A09357 Assistance with Respiratory Ventilation, Less than 24 Consecutive Hours, Continuous Positive Airway Pressure (ICD-10-PCS; 2019-09-18)
PROC: 5A09357 Assistance with Respiratory Ventilation, Less than 24 Consecutive Hours, Continuous Positive Airway Pressure (ICD-10-PCS; 2019-09-19)
PROC: 0QSJ04Z Reposition Right Fibula with Internal Fixation Device, Open Approach (ICD-10-PCS; 2019-09-20)
PROC: 0SSF04Z Reposition Right Ankle Joint with Internal Fixation Device, Open Approach (ICD-10-PCS; 2019-09-20)
PROC: 5A09357 Assistance with Respiratory Ventilation, Less than 24 Consecutive Hours, Continuous Positive Airway Pressure (ICD-10-PCS; 2019-09-20)
DX: A41.9 Sepsis, unspecified organism (principal); J15.6 Pneumonia due to other Gram-negative bacteria; J96.21 Acute and chronic respiratory failure with hypoxia; J96.22 Acute and chronic respiratory failure with hypercapnia; N17.9 Acute kidney failure, unspecified; J44.1 Chronic obstructive pulmonary disease with (acute) exacerbation; Z68.44 Body mass index [BMI] 60.0-69.9, adult; J44.0 Chronic obstructive pulmonary disease with (acute) lower respiratory infection; M84.471A Pathological fracture, right ankle, initial encounter for fracture; I10 Essential (primary) hypertension; G47.33 Obstructive sleep apnea (adult) (pediatric); S82.841A Displaced bimalleolar fracture of right lower leg, initial encounter for closed fracture; E66.01 Morbid (severe) obesity due to excess calories; G89.29 Other chronic pain; M54.9 Dorsalgia, unspecified; K21.9 Gastro-esophageal reflux disease without esophagitis; M19.90 Unspecified osteoarthritis, unspecified site; F41.1 Generalized anxiety disorder; F32.9 Major depressive disorder, single episode, unspecified; E87.5 Hyperkalemia; S90.511A Abrasion, right ankle, initial encounter; D64.9 Anemia, unspecified; E03.9 Hypothyroidism, unspecified; D72.0 Genetic anomalies of leukocytes; E55.9 Vitamin D deficiency, unspecified; T38.0X5A Adverse effect of glucocorticoids and synthetic analogues, initial encounter; Z23 Encounter for immunization; Z90.710 Acquired absence of both cervix and uterus; Z88.6 Allergy status to analgesic agent; Z90.49 Acquired absence of other specified parts of digestive tract; Z83.6 Family history of other diseases of the respiratory system; Z87.891 Personal history of nicotine dependence; Z79.891 Long term (current) use of opiate analgesic; W18.39XA Other fall on same level, initial encounter; Y93.89 Activity, other specified; Y92.89 Other specified places as the place of occurrence of the external cause; Y99.8 Other external cause status

== ENCOUNTER → 2019-09-11 | Outpatient (CLI) | payer MEDICARE | LOC: M.PC 01:39 | DX: M51.16 Intervertebral disc disorders with radiculopathy, lumbar region (principal); M47.26 Other spondylosis with radiculopathy, lumbar region; M43.16 Spondylolisthesis, lumbar region; E66.01 Morbid (severe) obesity due to excess calories; I10 Essential (primary) hypertension; Z87.891 Personal history of nicotine dependence; Z90.710 Acquired absence of both cervix and uterus; Z96.642 Presence of left artificial hip joint; Z68.43 Body mass index [BMI] 50.0-59.9, adult; Z88.5 Allergy status to narcotic agent ==

== ENCOUNTER 2019-10-25 11:20 | Inpatient (IN) | payer MEDICARE ==
[2019-10-25] VITALS (10 sets, daily range): BP systolic 102–158; BP diastolic 61–104
[~2019-10-25] VITALS: Ht 152.4 cm; Wt 143.8 kg
--- NOTE | ~2019-10-25 | EEG ---
[address] [address] EEG STUDY REPORT Name: LUIS URENA Nahomi Room: [address] IN [facility]#: [id number] Admission: 10/25/19 Attend Phys: Maria G Forde MD Discharge: Date of : 60 Report #: [id number] THIS REPORT FOR: //name// CC: Michael Forde DATE OF SERVICE: 11/15/2019 This patient is being evaluated for altered mental status. EEG was done by placing the electrode by standard 10-20 system of electrode placement. Both referential and sequential montages were used for recording. Background activity is about 6-7 Hz. It is intermixed with a lot of muscle artifact as well as movement artifact. That makes the interpretation of this EEG very difficult. No active epileptiform activity was noted. IMPRESSION: This patient's EEG does not demonstrate any active epileptiform activity. However, the EEG is slow and that can occur with dementia, encephalopathy, effect of psychotropic medication, etc. Clinical correlation is recommended. By: 0847 [id number] March MD /nt
[~2019-10-25 11:20] MED LIST changes: +ANECREAM5 GM TOP; +ERGOCALCIF50000 UNIT PO; +GNP SENNA PLUS1 EACH PO; +IPRAT-ALBUT 0.5-3 ML INH; +MELATONIN5 M1 PO; +MUCINEX600 MG PO; +NAPROXEN375 MG PO; +OXYCODONE HCL 55 MG PO; +PREDNISONE 20 M20 MG PO; +SINGULAIR 10 MG10 M1 PO
[2019-10-25 11:51] LABS: HEMATOCRIT 35.5 % (37.0-47.0); HEMOGLOBIN 10.9 gm/dL (12.0-15.0); MCH 26.6 pg (26.0-34.0); MCHC 30.7 g/dL (28.0-37.0); MCV 86.8 fL (80.0-100.0); MPV 8.9 fl. (7.2-11.1); NUCLEATED RBCS 2 /100WBC; PLATELET COUNT* 247 thou/uL (150-400); RBC 4.09 mil/uL (4.20-5.00); RDW-CV 19.1 % (10.5-14.5); WBC 15.5 thou/uL (4.0-11.0)
[2019-10-25 11:56] LABS: APTT 26.1 Seconds (25.0-31.3); INR 1.1; PROTIME 11.2 Seconds (9.20-11.50)
[2019-10-25 11:57] LABS: CALCIUM 8.4 mg/dL (8.5-10.1); POTASSIUM 5.3 mmol/L (3.5-5.1)
[2019-10-25 12:06] LABS: ALBUMIN 3.2 g/dL (3.4-5.0); MAGNESIUM 2.1 mg/dL (1.8-2.4); TOTAL BILIRUBIN 0.5 mg/dL (<0.1-1.0); TOTAL PROTEIN 7.3 g/dL (6.4-8.2)
[2019-10-25 12:37] LABS: ABSOLUTE BASOPHILS 0.2 thou/uL (0.0-0.2); ABSOLUTE LYMPHOCYTES 1.9 thou/uL (0.8-5.3); ABSOLUTE MONOCYTES 0.2 thou/uL (0.0-1.2); ABSOLUTE NEUTROPHILS 13.3 thou/uL (1.6-8.1); ATYPICAL LYMPHS 3 %; METAMYELOCYTES 1 %; PLATELET ESTIMATE ADEQUATE
[2019-10-25 12:38] LABS: BE -1.7 mmol/L (-2 to +3)
[2019-10-25 12:42] LABS: PO2 328.4 mmHg (75.0-100.0); pH 7.192 (7.340-7.450)
[2019-10-25 19:47] LABS: BE -2.8 mmol/L (-2 to +3)
[2019-10-25 19:50] LABS: PCO2 64.2 mmHg (35.0-45.0)
[2019-10-26] VITALS (20 sets, daily range): BP systolic 95–130; BP diastolic 45–81
[2019-10-26 04:26] LABS: HEMATOCRIT 30.2 % (37.0-47.0); HEMOGLOBIN 9.3 gm/dL (12.0-15.0); MCH 26.2 pg (26.0-34.0); MCV 84.7 fL (80.0-100.0); MPV 8.6 fl. (7.2-11.1); RBC 3.56 mil/uL (4.20-5.00); RDW-CV 18.8 % (10.5-14.5); WBC 12.3 thou/uL (4.0-11.0)
[2019-10-26 04:46] LABS: ALBUMIN 2.6 g/dL (3.4-5.0); CALCIUM 7.7 mg/dL (8.5-10.1); CREATININE 1.8 mg/dL (0.6-1.3); POTASSIUM 4.5 mmol/L (3.5-5.1); TOTAL BILIRUBIN 0.3 mg/dL (<0.1-1.0)
[2019-10-26 06:22] LABS: BE -0.3 mmol/L (-2 to +3); PO2 90.5 mmHg (75.0-100.0)
[2019-10-26 06:25] LABS: pH 7.262 (7.340-7.450)
[2019-10-26 06:52] LABS: INFLUENZA A ANTIGEN Negative (Negative); INFLUENZA B ANTIGEN Negative (Negative)
[2019-10-26 09:24] LABS: PCO2 62.1 mmHg (35.0-45.0)
--- NOTE | 2019-10-26 11:41 | EKG ---
[place] [address] ELECTROCARDIOGRAM REPORT Name: AYANNALUIS Nahomi Room: [address] ADM IN 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: : 1960 Requested By: Rene Riggs Order Number: [id number] MD: Seth Jones Measurements Intervals [place] Rate: 82 P: 0 AK: 65 QRS: -21 QRSD: 112 T: 60 QT: 532 QTc: 622 Interpretive Statements Sinus rhythm Short AK interval Borderline intraventricular conduction delay Nonspecific T abnrm, anterolateral leads Prolonged QT interval Baseline wander in lead(s) V1 Compared to ECG 09/20/2019 05:06:32 Short AK interval now present ST (T wave) deviation now present Prolonged QT interval now present Electronically Signed On 10-26-2019 11:40:45 BUSINESS CONSULT by Seth Jones [email or web address] <ELECTRONICALLY SIGNED> By: Seth Jones MD, FACC 10/26/19 1140 1133 1133 Seth Jones MD, FACC /EPI
[2019-10-26 15:47] LABS: BE -0.1 mmol/L (-2 to +3); PO2 76.9 mmHg (75.0-100.0)
[2019-10-26 15:49] LABS: PCO2 58.3 mmHg (35.0-45.0); pH 7.289 (7.340-7.450)
[2019-10-27] VITALS (95 sets, daily range): BP systolic 78–134; BP diastolic 35–78
[2019-10-27 04:19] LABS: BE 0.5 mmol/L (-2 to +3); PO2 94.2 mmHg (75.0-100.0)
[2019-10-27 04:22] LABS: PCO2 59.8 mmHg (35.0-45.0); pH 7.287 (7.340-7.450)
[2019-10-27 04:54] LABS: ABSOLUTE LYMPHOCYTES 0.6 thou/uL (0.8-5.3); ABSOLUTE MONOCYTES 0.3 thou/uL (0.0-1.2); BASOPHILS 0.4 %; HEMOGLOBIN 8.9 gm/dL (12.0-15.0); LYMPHOCYTES 5.3 %; MCH 25.8 pg (26.0-34.0); MCHC 30.5 g/dL (28.0-37.0); MCV 84.3 fL (80.0-100.0); MONOCYTES 2.4 %; MPV 8.9 fl. (7.2-11.1); NUCLEATED RBCS 1 /100WBC; PLATELET COUNT* 177 thou/uL (150-400); POLYS 91.9 %; RBC 3.44 mil/uL (4.20-5.00)
[2019-10-27 05:11] LABS: ALBUMIN 2.5 g/dL (3.4-5.0); CALCIUM 7.6 mg/dL (8.5-10.1); CREATININE 1.9 mg/dL (0.6-1.3); MAGNESIUM 2.3 mg/dL (1.8-2.4); POTASSIUM 4.1 mmol/L (3.5-5.1); TOTAL BILIRUBIN 0.3 mg/dL (<0.1-1.0); TOTAL PROTEIN 5.9 g/dL (6.4-8.2)
[2019-10-27 05:12] LABS: ALBUMIN 2.5 g/dL (3.4-5.0); DIRECT BILIRUBIN 0.1 mg/dL (<0.1-0.3); TOTAL BILIRUBIN 0.3 mg/dL (<0.1-1.0); TOTAL PROTEIN 5.7 g/dL (6.4-8.2)
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
[2019-10-28] VITALS (75 sets, daily range): BP systolic 88–125; BP diastolic 41–74
[2019-10-28 05:00] LABS: HEMATOCRIT 28.5 % (37.0-47.0); HEMOGLOBIN 8.9 gm/dL (12.0-15.0); MCH 26.4 pg (26.0-34.0); MCHC 31.3 g/dL (28.0-37.0); MCV 84.2 fL (80.0-100.0); MPV 9.2 fl. (7.2-11.1); RBC 3.39 mil/uL (4.20-5.00); RDW-CV 19.3 % (10.5-14.5); WBC 9.8 thou/uL (4.0-11.0)
[2019-10-28 05:14] LABS: CALCIUM 7.9 mg/dL (8.5-10.1); CREATININE 1.5 mg/dL (0.6-1.3); MAGNESIUM 2.7 mg/dL (1.8-2.4); POTASSIUM 4.8 mmol/L (3.5-5.1)
[2019-10-28 05:38] LABS: BE -3.1 mmol/L (-2 to +3)
[2019-10-28 05:40] LABS: PCO2 52.2 mmHg (35.0-45.0); pH 7.278 (7.340-7.450)
[2019-10-29] VITALS (37 sets, daily range): BP systolic 87–171; BP diastolic 36–82
[2019-10-29 04:06] LABS: HEMATOCRIT 30.2 % (37.0-47.0); HEMOGLOBIN 9.3 gm/dL (12.0-15.0); MCHC 30.7 g/dL (28.0-37.0); MCV 84.7 fL (80.0-100.0); MPV 8.9 fl. (7.2-11.1); RBC 3.56 mil/uL (4.20-5.00); RDW-CV 19.5 % (10.5-14.5); WBC 9.4 thou/uL (4.0-11.0)
[2019-10-29 04:27] LABS: ALBUMIN 2.7 g/dL (3.4-5.0); CALCIUM 7.7 mg/dL (8.5-10.1); CREATININE 1.4 mg/dL (0.6-1.3); POTASSIUM 5.6 mmol/L (3.5-5.1); TOTAL BILIRUBIN 0.2 mg/dL (<0.1-1.0); TOTAL PROTEIN 6.2 g/dL (6.4-8.2)
[2019-10-29 06:34] LABS: BE 4.4 mmol/L (-2 to +3); PO2 87.3 mmHg (75.0-100.0)
[2019-10-29 06:36] LABS: PCO2 79.8 mmHg (35.0-45.0); pH 7.245 (7.340-7.450)
[2019-10-29 11:24] LABS: CALCIUM 7.8 mg/dL (8.5-10.1); CREATININE 1.4 mg/dL (0.6-1.3); POTASSIUM 5.8 mmol/L (3.5-5.1)
[2019-10-29 16:15] LABS: CALCIUM 7.8 mg/dL (8.5-10.1); CREATININE 1.4 mg/dL (0.6-1.3); POTASSIUM 5.4 mmol/L (3.5-5.1)
[2019-10-30] VITALS (59 sets, daily range): BP systolic 109–161; BP diastolic 57–92
[2019-10-30 05:29] LABS: HEMATOCRIT 28.5 % (37.0-47.0); HEMOGLOBIN 8.8 gm/dL (12.0-15.0); MCH 25.9 pg (26.0-34.0); MCV 83.6 fL (80.0-100.0); MPV 8.8 fl. (7.2-11.1); RBC 3.41 mil/uL (4.20-5.00); RDW-CV 18.6 % (10.5-14.5); WBC 9.2 thou/uL (4.0-11.0)
[2019-10-30 05:40] LABS: CALCIUM 7.6 mg/dL (8.5-10.1); CREATININE 1.3 mg/dL (0.6-1.3); MAGNESIUM 2.9 mg/dL (1.8-2.4); POTASSIUM 5.2 mmol/L (3.5-5.1)
[2019-10-30 05:50] LABS: BE 7.7 mmol/L (-2 to +3); PO2 78.3 mmHg (75.0-100.0)
[2019-10-30 05:52] LABS: PCO2 77.1 mmHg (35.0-45.0); pH 7.292 (7.340-7.450)
[2019-10-30 10:52] LABS: BE 3.2 mmol/L (-2 to +3); PO2 84.3 mmHg (75.0-100.0); pH 7.304 (7.340-7.450)
[2019-10-30 10:53] LABS: PCO2 63.3 mmHg (35.0-45.0)
[2019-10-31] VITALS (25 sets, daily range): BP systolic 116–152; BP diastolic 54–81
[2019-10-31 05:38] LABS: HEMATOCRIT 27.4 % (37.0-47.0); HEMOGLOBIN 8.7 gm/dL (12.0-15.0); MCH 26.3 pg (26.0-34.0); MCHC 31.7 g/dL (28.0-37.0); MPV 8.6 fl. (7.2-11.1); NUCLEATED RBCS 1 /100WBC; PLATELET COUNT* 188 thou/uL (150-400); RDW-CV 18.4 % (10.5-14.5); WBC 10.1 thou/uL (4.0-11.0)
[2019-10-31 05:50] LABS: CALCIUM 8.3 mg/dL (8.5-10.1); CREATININE 1.1 mg/dL (0.6-1.3); POTASSIUM 4.5 mmol/L (3.5-5.1)
[2019-10-31 06:03] LABS: ABSOLUTE LYMPHOCYTES 0.8 thou/uL (0.8-5.3); ABSOLUTE MONOCYTES 0.3 thou/uL (0.0-1.2); ANISOCYTOSIS 1+; PLATELET ESTIMATE ADEQUATE; POIKILOCYTOSIS 1+; POLYCHROMASIA 1+
[2019-10-31 13:36] LABS: CALCIUM 7.7 mg/dL (8.5-10.1); CREATININE 1.1 mg/dL (0.6-1.3); POTASSIUM 4.4 mmol/L (3.5-5.1)
[2019-11-01] VITALS (27 sets, daily range): BP systolic 115–172; BP diastolic 52–93
[2019-11-01 05:07] LABS: ADENOVIRUS Negative (Negative); INFLUENZA A Negative (Negative); INFLUENZA B Negative (Negative); METAPNEUMOVIRUS Positive (Negative); PARAINFLUENZA 1 Negative (Negative); PARAINFLUENZA 2 Negative (Negative); PARAINFLUENZA 3 Negative (Negative); RHINOVIRUS Negative (Negative); RSV A Negative (Negative); RSV B Negative (Negative)
[2019-11-01 05:14] LABS: HEMATOCRIT 28.9 % (37.0-47.0); HEMOGLOBIN 9.2 gm/dL (12.0-15.0); MCH 26.6 pg (26.0-34.0); MCHC 31.8 g/dL (28.0-37.0); MCV 83.6 fL (80.0-100.0); MPV 8.7 fl. (7.2-11.1); RBC 3.46 mil/uL (4.20-5.00); RDW-CV 18.5 % (10.5-14.5); WBC 8.7 thou/uL (4.0-11.0)
[2019-11-01 05:57] LABS: ALBUMIN 2.6 g/dL (3.4-5.0); CALCIUM 8.5 mg/dL (8.5-10.1); MAGNESIUM 2.5 mg/dL (1.8-2.4); POTASSIUM 4.3 mmol/L (3.5-5.1); TOTAL BILIRUBIN 0.4 mg/dL (<0.1-1.0); TOTAL PROTEIN 5.6 g/dL (6.4-8.2)
[2019-11-01 08:25] LABS: BE 11.7 mmol/L (-2 to +3); PO2 68.2 mmHg (75.0-100.0); pH 7.387 (7.340-7.450)
[2019-11-01 08:29] LABS: PCO2 66.7 mmHg (35.0-45.0)
[2019-11-02] VITALS (30 sets, daily range): BP systolic 128–193; BP diastolic 60–94
[2019-11-02 04:47] LABS: BE 5.5 mmol/L (-2 to +3); PCO2 47.4 mmHg (35.0-45.0); PO2 94.4 mmHg (75.0-100.0); pH 7.427 (7.340-7.450)
[2019-11-02 07:48] LABS: ABSOLUTE LYMPHOCYTES 0.8 thou/uL (0.8-5.3); ABSOLUTE MONOCYTES 0.3 thou/uL (0.0-1.2); ABSOLUTE NEUTROPHILS 6.8 thou/uL (1.6-8.1); BASOPHILS 0.2 %; EOSINOPHILS 0.1 %; HEMATOCRIT 27.9 % (37.0-47.0); HEMOGLOBIN 8.9 gm/dL (12.0-15.0); LYMPHOCYTES 10.2 %; MCH 26.4 pg (26.0-34.0); MCV 82.6 fL (80.0-100.0); MPV 9.2 fl. (7.2-11.1); NUCLEATED RBCS 0 /100WBC; PLATELET COUNT* 229 thou/uL (150-400); POLYS 85.5 %; RBC 3.38 mil/uL (4.20-5.00); RDW-CV 18.7 % (10.5-14.5); WBC 7.9 thou/uL (4.0-11.0)
[2019-11-02 07:51] LABS: CALCIUM 8.2 mg/dL (8.5-10.1); POTASSIUM 4.8 mmol/L (3.5-5.1)
[2019-11-02 07:55] LABS: ALBUMIN 2.5 g/dL (3.4-5.0); MAGNESIUM 2.3 mg/dL (1.8-2.4); PHOSPHORUS* 4.2 mg/dL (2.5-4.9); TOTAL BILIRUBIN 0.4 mg/dL (<0.1-1.0); TOTAL PROTEIN 5.3 g/dL (6.4-8.2)
[2019-11-02 10:01] LABS: URINE BILIRUBIN NEGATIVE (Negative); URINE BLOOD TRACE (Negative); URINE CLARITY CLEAR; URINE COLOR YELLOW; URINE GLUCOSE-RANDOM NEGATIVE (Negative); URINE KETONES NEGATIVE (Negative); URINE LEUKOCYTES-REFLEX NEGATIVE (Negative); URINE NITRITE-REFLEX NEGATIVE (Negative); URINE PROTEIN TRACE (Negative); URINE UROBILINOGEN 0.2 E.U./dl (0.2-1.0)
[2019-11-03] VITALS (21 sets, daily range): BP systolic 139–188; BP diastolic 46–102
[2019-11-03 04:14] LABS: HEMATOCRIT 31.8 % (37.0-47.0); HEMOGLOBIN 9.9 gm/dL (12.0-15.0); MCH 25.6 pg (26.0-34.0); MCHC 31.1 g/dL (28.0-37.0); MCV 82.3 fL (80.0-100.0); MPV 8.8 fl. (7.2-11.1); RBC 3.86 mil/uL (4.20-5.00); RDW-CV 18.6 % (10.5-14.5); WBC 8.7 thou/uL (4.0-11.0)
[2019-11-03 04:24] LABS: CREATININE 0.9 mg/dL (0.6-1.3); MAGNESIUM 2.3 mg/dL (1.8-2.4); POTASSIUM 5.5 mmol/L (3.5-5.1)
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
[2019-11-03 09:13] LABS: BE 5.2 mmol/L (-2 to +3); PO2 80.4 mmHg (75.0-100.0)
[2019-11-03 09:15] LABS: PCO2 56.2 mmHg (35.0-45.0)
[2019-11-04] VITALS (29 sets, daily range): BP systolic 132–181; BP diastolic 60–101
[2019-11-04 01:30] LABS: HEMATOCRIT 32.4 % (37.0-47.0); HEMOGLOBIN 10.3 gm/dL (12.0-15.0); MCH 26.1 pg (26.0-34.0); MCHC 31.7 g/dL (28.0-37.0); MCV 82.2 fL (80.0-100.0); RBC 3.95 mil/uL (4.20-5.00); RDW-CV 18.7 % (10.5-14.5); WBC 10.9 thou/uL (4.0-11.0)
[2019-11-04 01:31] LABS: BE 5.1 mmol/L (-2 to +3); PO2 64.2 mmHg (75.0-100.0); pH 7.434 (7.340-7.450)
[2019-11-04 01:35] LABS: CREATININE 0.9 mg/dL (0.6-1.3); MAGNESIUM 2.1 mg/dL (1.8-2.4); POTASSIUM 4.9 mmol/L (3.5-5.1)
[2019-11-04 15:34] LABS: BE 5.9 mmol/L (-2 to +3); PCO2 45.6 mmHg (35.0-45.0); PO2 90.8 mmHg (75.0-100.0); pH 7.446 (7.340-7.450)
[2019-11-05] VITALS (22 sets, daily range): BP systolic 118–201; BP diastolic 57–107
[2019-11-06] VITALS (32 sets, daily range): BP systolic 117–188; BP diastolic 61–98
[2019-11-06 05:27] LABS: HEMATOCRIT 34.9 % (37.0-47.0); MCH 25.8 pg (26.0-34.0); MCHC 31.4 g/dL (28.0-37.0); MPV 8.3 fl. (7.2-11.1); RBC 4.25 mil/uL (4.20-5.00); RDW-CV 18.8 % (10.5-14.5); WBC 12.7 thou/uL (4.0-11.0)
[2019-11-06 05:44] LABS: ALBUMIN 2.9 g/dL (3.4-5.0); CALCIUM 8.8 mg/dL (8.5-10.1); CREATININE 0.7 mg/dL (0.6-1.3); MAGNESIUM 1.8 mg/dL (1.8-2.4); POTASSIUM 3.6 mmol/L (3.5-5.1); TOTAL BILIRUBIN 0.6 mg/dL (<0.1-1.0); TOTAL PROTEIN 5.8 g/dL (6.4-8.2)
--- NOTE | 2019-11-06 14:27 | EKG ---
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 <ELECTRONICALLY SIGNED> By: Seth Jones MD, FACC 11/06/19 1427 1256 [id number] Seth Jones MD, FAC /EPI
[2019-11-07] VITALS (16 sets, daily range): BP systolic 147–189; BP diastolic 38–94
[2019-11-07 06:12] LABS: CALCIUM 9.1 mg/dL (8.5-10.1); CREATININE 0.8 mg/dL (0.6-1.3); POTASSIUM 4.4 mmol/L (3.5-5.1); TOTAL BILIRUBIN 0.7 mg/dL (<0.1-1.0); TOTAL PROTEIN 6.2 g/dL (6.4-8.2)
[2019-11-08] VITALS (23 sets, daily range): BP systolic 131–187; BP diastolic 59–112
[2019-11-08 01:30] LABS: HEMATOCRIT 34.9 % (37.0-47.0); HEMOGLOBIN 10.9 gm/dL (12.0-15.0); MCH 26.1 pg (26.0-34.0); MCHC 31.2 g/dL (28.0-37.0); MCV 83.6 fL (80.0-100.0); MPV 8.7 fl. (7.2-11.1); RBC 4.17 mil/uL (4.20-5.00); RDW-CV 19.4 % (10.5-14.5); WBC 14.9 thou/uL (4.0-11.0)
[2019-11-08 01:48] LABS: ALBUMIN 3.2 g/dL (3.4-5.0); CALCIUM 9.2 mg/dL (8.5-10.1); CREATININE 0.9 mg/dL (0.6-1.3); MAGNESIUM 2.1 mg/dL (1.8-2.4); POTASSIUM 4.1 mmol/L (3.5-5.1); TOTAL BILIRUBIN 0.6 mg/dL (<0.1-1.0)
[2019-11-08 04:09] LABS: BE 5.5 mmol/L (-2 to +3); PCO2 48.9 mmHg (35.0-45.0); PO2 88.3 mmHg (75.0-100.0); pH 7.419 (7.340-7.450)
[2019-11-09] VITALS (20 sets, daily range): BP systolic 132–196; BP diastolic 67–112
[2019-11-09 11:47] LABS: ALBUMIN 3.1 g/dL (3.4-5.0); CREATININE 0.7 mg/dL (0.6-1.3); PHOSPHORUS* 2.5 mg/dL (2.5-4.9); POTASSIUM 3.4 mmol/L (3.5-5.1); TOTAL BILIRUBIN 0.5 mg/dL (<0.1-1.0); TOTAL PROTEIN 5.9 g/dL (6.4-8.2)
[2019-11-10] VITALS (19 sets, daily range): BP systolic 119–201; BP diastolic 73–121
[2019-11-10 04:41] LABS: CALCIUM 9.1 mg/dL (8.5-10.1); CREATININE 0.7 mg/dL (0.6-1.3); MAGNESIUM 1.9 mg/dL (1.8-2.4); PHOSPHORUS* 2.8 mg/dL (2.5-4.9)
[2019-11-10 09:30] LABS: ABSOLUTE LYMPHOCYTES 1.2 thou/uL (0.8-5.3); ABSOLUTE MONOCYTES 0.6 thou/uL (0.0-1.2); ABSOLUTE NEUTROPHILS 9.4 thou/uL (1.6-8.1); BASOPHILS 0.3 %; EOSINOPHILS 0.1 %; HEMATOCRIT 34.1 % (37.0-47.0); HEMOGLOBIN 10.4 gm/dL (12.0-15.0); LYMPHOCYTES 10.4 %; MCH 25.9 pg (26.0-34.0); MCHC 30.5 g/dL (28.0-37.0); MCV 84.8 fL (80.0-100.0); MONOCYTES 5.4 %; MPV 9.5 fl. (7.2-11.1); NUCLEATED RBCS 0 /100WBC; PLATELET COUNT* 204 thou/uL (150-400); POLYS 83.8 %; RBC 4.03 mil/uL (4.20-5.00); RDW-CV 19.7 % (10.5-14.5); WBC 11.2 thou/uL (4.0-11.0)
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
[2019-11-11] VITALS (8 sets, daily range): BP systolic 147–200; BP diastolic 80–113
[2019-11-12] VITALS (9 sets, daily range): BP systolic 155–215; BP diastolic 77–163
[2019-11-12 05:26] LABS: HEMOGLOBIN 10.9 gm/dL (12.0-15.0); MCH 26.7 pg (26.0-34.0); MCHC 32.1 g/dL (28.0-37.0); MCV 83.3 fL (80.0-100.0); MPV 9.4 fl. (7.2-11.1); RBC 4.08 mil/uL (4.20-5.00); RDW-CV 19.3 % (10.5-14.5); WBC 10.2 thou/uL (4.0-11.0)
[2019-11-12 05:35] LABS: ALBUMIN 2.9 g/dL (3.4-5.0); CALCIUM 8.9 mg/dL (8.5-10.1); CREATININE 0.7 mg/dL (0.6-1.3); POTASSIUM 3.6 mmol/L (3.5-5.1); TOTAL BILIRUBIN 0.5 mg/dL (<0.1-1.0); TOTAL PROTEIN 5.8 g/dL (6.4-8.2)
[2019-11-13 04:00] VITALS: BP 192/117
[2019-11-13 08:00] VITALS: BP 160/97
[2019-11-13 08:19] LABS: ALBUMIN 3.1 g/dL (3.4-5.0); CALCIUM 9.1 mg/dL (8.5-10.1); CREATININE 0.7 mg/dL (0.6-1.3); MAGNESIUM 1.9 mg/dL (1.8-2.4); PHOSPHORUS* 2.7 mg/dL (2.5-4.9); POTASSIUM 3.5 mmol/L (3.5-5.1); TOTAL BILIRUBIN 0.7 mg/dL (<0.1-1.0); TOTAL PROTEIN 6.2 g/dL (6.4-8.2)
[2019-11-13 12:23] VITALS: BP 161/93
[2019-11-13 16:00] VITALS: BP 147/91
[2019-11-13 20:00] VITALS: BP 157/92
[2019-11-14] VITALS: BP 151/91
[2019-11-14 04:00] VITALS: BP 116/62
[2019-11-14 05:33] LABS: HEMATOCRIT 31.7 % (37.0-47.0); HEMOGLOBIN 10.2 gm/dL (12.0-15.0); MCH 27.4 pg (26.0-34.0); MCHC 32.3 g/dL (28.0-37.0); MCV 84.7 fL (80.0-100.0); MPV 10.1 fl. (7.2-11.1); NUCLEATED RBCS 0 /100WBC; PLATELET COUNT* 122 thou/uL (150-400); RBC 3.74 mil/uL (4.20-5.00); RDW-CV 20.3 % (10.5-14.5); WBC 10.8 thou/uL (4.0-11.0)
[2019-11-14 05:50] LABS: CALCIUM 8.7 mg/dL (8.5-10.1); CREATININE 0.8 mg/dL (0.6-1.3); POTASSIUM 3.4 mmol/L (3.5-5.1)
[2019-11-14 06:09] LABS: ABSOLUTE EOSINOPHILS 0.4 thou/uL (0.0-0.7); ABSOLUTE LYMPHOCYTES 0.6 thou/uL (0.8-5.3); ABSOLUTE MONOCYTES 1.1 thou/uL (0.0-1.2); ABSOLUTE NEUTROPHILS 8.6 thou/uL (1.6-8.1)
[2019-11-14 06:10] LABS: ANISOCYTOSIS 1+; GIANT PLATELETS OCCASIONAL; PLATELET ESTIMATE DECREASED; POIKILOCYTOSIS 1+
[2019-11-14 08:00] VITALS: BP 138/61
[2019-11-14 12:05] VITALS: BP 131/80
[2019-11-14 15:38] VITALS: BP 135/66
[2019-11-14 20:00] VITALS: BP 90/42
[2019-11-15] VITALS: BP 100/74
[2019-11-15 04:00] VITALS: BP 119/76
[2019-11-15 08:06] VITALS: BP 150/95
[2019-11-15 08:17] LABS: HEMATOCRIT 31.1 % (37.0-47.0)
[2019-11-15 11:00] VITALS: BP 105/55
[2019-11-15 16:00] VITALS: BP 118/51
[2019-11-15 20:00] VITALS: BP 121/74
[2019-11-16] VITALS: BP 107/64
[2019-11-16 04:00] VITALS: BP 118/73
[2019-11-16 05:21] LABS: HEMATOCRIT 26.5 % (37.0-47.0); HEMOGLOBIN 8.5 gm/dL (12.0-15.0); MCH 27.5 pg (26.0-34.0); MCV 85.8 fL (80.0-100.0); RBC 3.1 mil/uL (4.20-5.00); RDW-CV 20.7 % (10.5-14.5); WBC 5.9 thou/uL (4.0-11.0)
[2019-11-16 05:31] LABS: CALCIUM 9.1 mg/dL (8.5-10.1); CREATININE 1.1 mg/dL (0.6-1.3); MAGNESIUM 2.3 mg/dL (1.8-2.4); POTASSIUM 4.3 mmol/L (3.5-5.1)
[2019-11-16 07:00] VITALS: BP 127/68
[2019-11-16 11:53] VITALS: BP 113/71
[2019-11-16 17:09] VITALS: BP 107/77
[2019-11-16 20:00] VITALS: BP 118/71
[2019-11-17] VITALS: BP 131/82
[2019-11-17 04:00] VITALS: BP 112/65
[2019-11-17 04:35] LABS: HEMATOCRIT 26.2 % (37.0-47.0); HEMOGLOBIN 8.3 gm/dL (12.0-15.0); MCH 27.2 pg (26.0-34.0); MCHC 31.8 g/dL (28.0-37.0); MCV 85.6 fL (80.0-100.0); MPV 9.4 fl. (7.2-11.1); RBC 3.06 mil/uL (4.20-5.00); RDW-CV 20.8 % (10.5-14.5); WBC 5.6 thou/uL (4.0-11.0)
[2019-11-17 15:36] VITALS: BP 155/91
== END 2019-11-17 20:08 | disposition short-term general hospital (02) | DRG 870 ==
LOC: M.ERS 11:20 → M.ICU 12:42 → M.TBA-ER 12:42 → M.ICU 13:07 → M.2W 11-10 22:40
PROVIDERS: Family Medicine; Internal Medicine; Internal Medicine Pulmonary Disease; Pediatrics; ADMIT Internal Medicine
PROC: 5A1955Z Respiratory Ventilation, Greater than 96 Consecutive Hours (ICD-10-PCS; principal; 2019-10-25)
PROC: 02HV33Z Insertion of Infusion Device into Superior Vena Cava, Percutaneous Approach (ICD-10-PCS; principal; 2019-10-25)
PROC: 0BH17EZ Insertion of Endotracheal Airway into Trachea, Via Natural or Artificial Opening (ICD-10-PCS; principal; 2019-10-25)
PROC: 5A09357 Assistance with Respiratory Ventilation, Less than 24 Consecutive Hours, Continuous Positive Airway Pressure (ICD-10-PCS; 2019-11-03)
PROC: 5A09357 Assistance with Respiratory Ventilation, Less than 24 Consecutive Hours, Continuous Positive Airway Pressure (ICD-10-PCS; 2019-11-04)
PROC: 5A09357 Assistance with Respiratory Ventilation, Less than 24 Consecutive Hours, Continuous Positive Airway Pressure (ICD-10-PCS; 2019-11-05)
PROC: 5A09357 Assistance with Respiratory Ventilation, Less than 24 Consecutive Hours, Continuous Positive Airway Pressure (ICD-10-PCS; 2019-11-06)
PROC: 5A09357 Assistance with Respiratory Ventilation, Less than 24 Consecutive Hours, Continuous Positive Airway Pressure (ICD-10-PCS; 2019-11-07)
PROC: 5A09357 Assistance with Respiratory Ventilation, Less than 24 Consecutive Hours, Continuous Positive Airway Pressure (ICD-10-PCS; 2019-11-08)
PROC: 5A09357 Assistance with Respiratory Ventilation, Less than 24 Consecutive Hours, Continuous Positive Airway Pressure (ICD-10-PCS; 2019-11-09)
PROC: 5A09357 Assistance with Respiratory Ventilation, Less than 24 Consecutive Hours, Continuous Positive Airway Pressure (ICD-10-PCS; 2019-11-10)
PROC: 5A09357 Assistance with Respiratory Ventilation, Less than 24 Consecutive Hours, Continuous Positive Airway Pressure (ICD-10-PCS; 2019-11-11)
PROC: 5A09357 Assistance with Respiratory Ventilation, Less than 24 Consecutive Hours, Continuous Positive Airway Pressure (ICD-10-PCS; 2019-11-12)
PROC: 5A09357 Assistance with Respiratory Ventilation, Less than 24 Consecutive Hours, Continuous Positive Airway Pressure (ICD-10-PCS; 2019-11-13)
PROC: 5A09357 Assistance with Respiratory Ventilation, Less than 24 Consecutive Hours, Continuous Positive Airway Pressure (ICD-10-PCS; 2019-11-14)
PROC: 5A09357 Assistance with Respiratory Ventilation, Less than 24 Consecutive Hours, Continuous Positive Airway Pressure (ICD-10-PCS; 2019-11-15)
DX: A41.9 Sepsis, unspecified organism (principal); J96.22 Acute and chronic respiratory failure with hypercapnia; J96.21 Acute and chronic respiratory failure with hypoxia; I50.33 Acute on chronic diastolic (congestive) heart failure; J12.3 Human metapneumovirus pneumonia; G92 Toxic encephalopathy; K29.71 Gastritis, unspecified, with bleeding; J44.1 Chronic obstructive pulmonary disease with (acute) exacerbation; N17.9 Acute kidney failure, unspecified; E87.0 Hyperosmolality and hypernatremia; E44.0 Moderate protein-calorie malnutrition; J44.0 Chronic obstructive pulmonary disease with (acute) lower respiratory infection; I13.0 Hypertensive heart and chronic kidney disease with heart failure and stage 1 through stage 4 chronic kidney disease, or unspecified chronic kidney disease; Z68.44 Body mass index [BMI] 60.0-69.9, adult; G89.29 Other chronic pain; M19.91 Primary osteoarthritis, unspecified site; E66.01 Morbid (severe) obesity due to excess calories; F41.1 Generalized anxiety disorder; F32.9 Major depressive disorder, single episode, unspecified; K21.9 Gastro-esophageal reflux disease without esophagitis; M54.9 Dorsalgia, unspecified; G47.33 Obstructive sleep apnea (adult) (pediatric); F11.90 Opioid use, unspecified, uncomplicated; R13.10 Dysphagia, unspecified; R47.1 Dysarthria and anarthria; N18.3 Chronic kidney disease, stage 3 (moderate); E87.5 Hyperkalemia; D50.9 Iron deficiency anemia, unspecified; E53.8 Deficiency of other specified B group vitamins; E78.1 Pure hyperglyceridemia; R41.0 Disorientation, unspecified; F43.10 Post-traumatic stress disorder, unspecified; X58.XXXA Exposure to other specified factors, initial encounter; Z90.710 Acquired absence of both cervix and uterus; Z88.6 Allergy status to analgesic agent; Z87.891 Personal history of nicotine dependence; Y93.89 Activity, other specified; Y92.89 Other specified places as the place of occurrence of the external cause; Y99.8 Other external cause status